=== PATIENT | male | born 1950 | race Caucasian/White ===

== ENCOUNTER 2016-07-17 05:49 | Day surgery (SDC) | payer OTHER ==
[2016-07-16 11:06] VITALS: Ht 180.3 cm; Wt 79.5 kg
[~2016-07-17] VITALS: Ht 180.3 cm; Wt 79.5 kg
[2016-07-17] VITALS (13 sets, daily range): BP systolic 76–108; BP diastolic 43–66; PULSE 46–68; RESP 11–20
[~2016-07-17 05:49] MED LIST: BENA20TA48 PO
[2016-07-17] MEDS ORDERED: LIDOCAINE 1%/EPI 30 ML INJ ONE (06:51)
--- NOTE | 2016-07-17 07:14 | HPN ---
Date/Time of Note Date/Time of Note DATE: 07/17/16 TIME: 07:14 Interval H&P Admission Note Pt. seen H&P reviewed: No system changes TIA OLIVEROS MD July 17, 2016 07:14
[2016-07-17] MEDS ORDERED: PROPOFOL 20 ML ONE (07:23)
[2016-07-17] MEDS ORDERED: CEFAZOLIN 1 GM INJ ONE (07:23)
[2016-07-17] MEDS ORDERED: FENTAnyl 50 MCG/ML VIAL ONE (07:24)
[2016-07-17] MEDS ORDERED: MIDAZOLAM 1 MG/ML 2 ML INJ ONE (07:24)
[2016-07-17] MEDS ORDERED: PHENYLephrine (100 MCG/ML) 5ML SYG ONE (08:18)
[2016-07-17] MEDS ORDERED: METOCLOPRAMIDE 10 MG INJ ONE (08:23)
[2016-07-17] MEDS ORDERED: ONDANSETRON 4 MG INJ ONE (08:23)
[2016-07-17] MEDS ORDERED: KETOROLAC 30 MG INJ ONE (08:24)
[2016-07-17] MEDS ORDERED: DEXAMETHASONE 4 MG/ML 1 ML INJ ONE (08:24)
[2016-07-17] MEDS ORDERED: MEPERIDINE 25 MG INJ IV PRN (08:30)
[2016-07-17] MEDS ORDERED: morphine (1 MG/ML) 10ML SYRINGE IV PRN ×3 (08:30)
[2016-07-17] MEDS ORDERED: LABETALOL HCL 20MG INJ IV PRN (08:30)
[2016-07-17] MEDS ORDERED: EPHEDrine SULFATE 50 MG/5 ML SYG IV PRN (08:30)
[2016-07-17] MEDS ORDERED: HYDROmorphONE (0.2 MG/ML) 10ML SYG IV PRN ×3 (08:30)
[2016-07-17] MEDS ORDERED: ONDANSETRON 4 MG INJ IV PRN ×2 (08:30→09:00)
[2016-07-17] MEDS ORDERED: DIPHENHYDRAMINE 50 MG INJ IV PRN (08:30)
[2016-07-17] MEDS ORDERED: OXYCODONE/ACETAMINOPHEN (5/325) TAB PO PRN ×3 (08:30→09:00)
[2016-07-17] MEDS ORDERED: NEOMYC/POLYMYX/BACIT 3.5GM OPH OINT ONE (08:32)
[2016-07-17] MEDS ORDERED: BACITRACIN/POLYMYXIN 28.35 GM OINT TOP ONE (08:33)
[2016-07-17] MEDS ORDERED: morphine 2 MG INJ IV PRN (09:00)
[2016-07-17] MEDS ORDERED: HYDROCODONE/APAP (5/325) TAB PO PRN (09:00)
--- NOTE | 2016-07-17 09:11 | OPR ---
Date/Time of Note Date/Time of Note DATE: 07/17/16 TIME: 09:05 Operative Report Free Text/Dictation Plastic Surgery Operative Report Preoperative diagnosis: nose basal cell Postoperative diagnosis: same Procedure: excision of nose basal cell and flap closure Surgeon:jocelyn Anderson.:n/a Anesthesia: gen EBL:min IV fluids: per flow sheet Findings:n/a Complications: none Dispo:home Indications for procedure:66-year-old male presents today for excision of a basal cell carcinoma on his nose and a flap closure. The risks, benefits, alternatives of performing this procedure were discussed with the patient including the risks of bleeding, infection, wound healing problems, distortion of normal structures, incomplete excision, need for reexcision, or scarring, and the patient states that he understands these risks and would like to proceed with the procedure. All questions were answered, no guarantees were given with regards to the outcome of this procedure. Description of procedure: Patient was brought to the operating room at [facility] where general anesthesia was induced. Next, the skin was prepped with alcohol and then 3 cc of 1% lidocaine with 1: 200,000 epinephrine were injected into the planned incision site. The patient was then prepped and draped in usual sterile fashion. First, the 15 blade was used to incise around the marked lesion, and then the incision was deepened into the subcutaneous tissue. A short stitch was placed superiorly and a long stitch was placed medially. Next, the lesion was excised in its entirety from the subcutaneous tissue using the 15 blade. Total size was 1 x 0.5 cm. The specimen was sent for frozen section and returned negative. The wound was then inspected and hemostasis was achieved with cautery. There was excess tissue laterally, and therefore a lateral advancement flap was planned. The flap edges were marked and then the incision was made with a 15 blade. The flap was undermined sharply with the scissors. The entire circumference of the wound was undermined sharply. This allowed the flap to advance without undue tension. The deep border of the flap was advanced into the defect and was secured in place with 5-0 Vicryl suture. The skin was closed with 5-0 nylon suture. Total size of the flap was 1 x 2 cm. The patient tolerated the procedure well, there were no complications, he will follow-up in 1 week. Follow-up information and wound care instructions were given TIA OLIVEROS MD July 17, 2016 09:11
== END 2016-07-17 10:20 | disposition home or self-care (01) ==
LOC: SDS 05:49
PROVIDERS: ATTEND Surgery Plastic and Reconstructive Surgery
DX: L98.8 Other specified disorders of the skin and subcutaneous tissue (principal); I10 Essential (primary) hypertension
CPT/HCPCS: 14060; 88305; 88331; J0690; J1100; J1885; J2250; J2370; J2405; J2765; J3010; Z7512; Z7610

== ENCOUNTER 2017-02-21 14:10 | Emergency (ER) | payer OTHER ==
[~2017-02-21] VITALS: Ht 167.6 cm; Wt 86.8 kg
[2017-02-21 14:16] VITALS: Ht 167.6 cm; Wt 86.8 kg
--- NOTE | 2017-02-21 15:44 | ERD ---
ER Documentation Chief Complaint Chief Complaint Complains of leg pain and ulcer x 10 days Sent from for eval. HPI 66-year-old male, previously healthy, presents to the emergency department for evaluation of a skin abrasion on his right leg that occurred 7 days ago, the patient is concerned about a possible persistent infection. The patient has been taking Keflex and Bactrim double strength, good compliance with medications , no side effects. Denies fevers, chills, no shortness of breath, no chest pain. ROS A 12-point review of systems was performed and negative other than presented in the history of present illness. SYSTEMIC symptoms: no fever, chills, no night sweats, no weight loss EYE symptoms: No blurred vision, no eye discharge OTOLARYNGEAL symptoms: No hearing loss. No ear pain, no sore throat CARDIOVASCULAR symptoms: No chest pain or discomfort, no palpitations. PULMONARY symptoms: No dyspnea, no cough, no wheezing. GASTROINTESTINAL symptoms: No abdominal pain, no nausea, no vomiting, no diarrhea MUSCULOSKELETAL symptoms: No arthralgias, no muscle aches. NEUROLOGY symptoms: No confusion, no syncope, no numbness or tingling. SKIN: No rashes Medications Home Meds Active Scripts Mupirocin* (Bactroban*) 2% -22 Gram Oint...g., 1 APPLIC TOP BID for 7 Days, EA Prov:FORREST GALICIA MD 02/21/17 Reported Medications Benazepril Hcl* (Benazepril Hcl*) 20 Mg Tablet, 20 MG PO DAILY, #30 TAB 07/16/16 Allergies Allergies: Coded Allergies: No Known Allergy (Unverified , 07/17/16) PMhx/Soc History of Surgery: No Anesthesia Reaction: No Hx Neurological Disorder: No Hx Respiratory Disorders: No Hx Cardiac Disorders: No Hx Psychiatric Problems: No Hx Miscellaneous Medical Probl: No Hx Substance Use: No Physical Exam Vitals Vital Signs Date Time Temp Pulse Resp B/P Pulse Ox O2 Delivery O2 Flow Rate FiO2 02/21/17 14:16 98.0 86 20 127/72 96 Physical Exam Patient is in no acute distress, vital signs stable. Alert and fully oriented. EYES: PERRLA, EOMI, Sclera and conjunctiva appear normal. EARS: Canals clear, tympanic membranes WNL THROAT: Normal oropharynx. NECK: Supple, No lymphadenopathy. Full ROM without pain or tenderness. HEART: RRR, no rubs, murmurs, clicks or gallops. LUNGS: Clear to auscultation. ABDOMEN: Soft, non-tender without masses or hepatosplenomegaly. EXTREMITIES: Right leg: Less than 1 cm scab, with mild surrounding erythema. No warmth, no tenderness, no fluctuation BACK: Full ROM, no deformity, normal back exam NEURO: Cranial nerves grossly intact, no motor or sensory deficit Procedures/MDM 66-year-old male, previously healthy, presents for evaluation of Vital signs stable, Physical exam unremarkable. Differential diagnosis include but not limited to: Cellulitis, abscess, laceration. Low suspicion for systemic infection. Physical examination and clinical presentation consistent most likely with noninfected superficial skin abrasion. During the ED course the patient remained stable, no new complaints. Results and clinical impression discussed with patient who agrees with management. The patient is stable to be treated outpatient and will be discharged home with recommendations to finish the course of antibiotics and a prescription for mupirocin was given. some side effects of prescribed medications (headache, rash, nausea, vomiting, diarrhea, drowsiness, habituation , bleeding, hypertension, interactions with other medications) were reviewed. The patient was instructed to follow up with the primary care provider in the next 48h. If symptoms persist, worsen or new symptoms develop, then patient should return to the ED immediately. Instructions explained and given directly by me to the patient in Finnish with acknowledgment and demonstrated understanding. Disclaimer: Inadvertent spelling and grammatical errors are likely due to EHR/ dictation software use and do not reflect on the overall quality of patient care. Also, please note that the electronic time recorded on this note does not necessarily reflect the actual time of the patient encounter. Departure Diagnosis: Primary Impression: Leg abrasion, non-infected Condition: Stable Additional Instructions: Call your primary care doctor TOMORROW for an appointment during the next 1-2 days. See the doctor sooner or return here if your condition worsens before your appointment time. Thank you very much for allowing us to participate in your care. Your health and safety is our top priority at [facility]. Have prescriptions filled and follow precisely the directions on the label. Follow-up with primary care provider during the next 4 days and bring all the information and medications prescribed. If illness has not improved in 2 days, then make an appointment with primary care provider. If the provider is unavailable, return to the Emergency Department immediately. FORREST GALICIA MD Feb 21, 2017 15:44 FORREST GALICIA MD Feb 21, 2017 15:44
[2017-02-21] MEDS ORDERED: MUPI22OI2 TOP (15:47)
== END 2017-02-21 16:20 | disposition home or self-care (01) ==
LOC: FTE 14:10
DX: S80.811A Abrasion, right lower leg, initial encounter (principal); X58.XXXA Exposure to other specified factors, initial encounter; Y92.9 Unspecified place or not applicable
CPT/HCPCS: 99283

== ENCOUNTER 2017-04-16 06:41 | Day surgery (SDC) | END 2017-04-16 12:00 | disposition home or self-care (01) ==